=== PATIENT | male | born 1970 | race African-American/Black ===

== ENCOUNTER 2018-09-23 21:41 | Emergency (ER) | payer MEDICAID ==
[~2018-09-23] VITALS: Ht 188 cm; Wt 225.0 kg
[2018-09-24] MEDS ORDERED: BACITRACIN 0.9 GM PACKET OINTMENT TP ONE (04:30)
[2018-09-24 05:00] VITALS: BP 141/71
== END 2018-09-24 05:23 | disposition home or self-care (01) ==
LOC: EMS 21:42
DX: S00.81XA Abrasion of other part of head, initial encounter (principal); F10.129 Alcohol abuse with intoxication, unspecified; F17.210 Nicotine dependence, cigarettes, uncomplicated; F12.90 Cannabis use, unspecified, uncomplicated; F19.90 Other psychoactive substance use, unspecified, uncomplicated; F14.90 Cocaine use, unspecified, uncomplicated; F11.90 Opioid use, unspecified, uncomplicated; X58.XXXA Exposure to other specified factors, initial encounter; Y93.89 Activity, other specified; Y92.89 Other specified places as the place of occurrence of the external cause; Y99.8 Other external cause status